=== PATIENT | female | born 1950 | race Caucasian/White ===

== ENCOUNTER 2024-08-16 17:04 | Observation (INO) | payer MEDICARE, SELFPAY ==
[2024-08-16 17:07] VITALS: BP 142/84; PULSE 80; TEMP 36.9; O2SAT 96; BMI 51.2
--- NOTE | 2024-08-16 17:12 | CT_ITS ---
The [address] [address] Patient Name: ROSARIO WEST MRN: [id number] date: 1950 Sex: F Assigned Patient Location: ER Current Patient Location: ER Accession/Order Number: [id number] Exam Date: 08/16/2024 17:30 Report Date: 08/16/2024 18:04 At the request of: TONI LOOMIS Procedure: CT head/brain wo con EXAM: CT head/brain wo con HISTORY: Weakness COMPARISON: None. TECHNIQUE: Head CT noncontrast. Axial scans with reformatted coronal and sagittal images. Individualized radiation dose reduction used for this exam. FINDINGS: No mass, edema or hemorrhage or other acute abnormality. Ventricles sulci mildly prominent consistent with mild atrophy. No extra-axial or subdural collection or hematoma. No mass effect or midline shift. No fracture or suspicious bone lesion. Visualized mastoid, middle ear cavities and sinuses clear. CT/CT head/brain wo con IMPRESSION: Negative head CT for age without hemorrhage, mass or other acute abnormality. Electronically authenticated by: KARON SHEEHAN Date: 08/16/2024 18:04
--- NOTE | 2024-08-16 17:12 | XR_ITS ---
The [address] [address] Patient Name: ROSARIO WEST MRN: [id number] date: 1950 Sex: F Assigned Patient Location: ER Current Patient Location: ED.MAIN Accession/Order Number: [id number] Exam Date: 08/16/2024 17:30 Report Date: 08/16/2024 17:59 At the request of: TONI LOOMIS Procedure: XR chest 1V EXAM: XR chest 1V HISTORY: Weakness COMPARISON: None. TECHNIQUE: AP upright chest x-ray. FINDINGS: Comparison is rotated. Heart size borderline. Prominent aortic arch. Central catheter tip projects in near the right hilum probable distal SVC. Dense nodule right lower lung field consistent with granuloma. Lungs otherwise clear without infiltrate or edema or other acute process. No pleural effusion or pneumothorax. XR/XR chest 1V IMPRESSION: Lungs without infiltrate or other acute process. Prominent aortic arch accentuated by magnification. Central catheter tip projects in the area of the distal SVC. Electronically authenticated by: KARON SHEEHAN Date: 08/16/2024 17:59
--- NOTE | 2024-08-16 17:12 | ECG_ITS ---
The [facility] Test Date: 2024-08-16 Pat Name: ROSARIO WEST Department: Room: - Gender: Female Staff Home Therapy Rn: : 1950 Requested By: Order Number: [id number] Reading MD: NADEGE GONZALEZ Measurements Intervals [place] Rate: 77 P: 65 AL: 182 QRS: 45 QRSD: 100 T: 55 QT: 394 QTc: 426 Interpretive Statements 1100 Sinus rhythm 9110 normal ECG No previous ECG available for comparison Electronically Signed On 08-17-2024 12:09:03 EST by NADEGE GONZALEZ
--- NOTE | 2024-08-16 17:13 | ED_ITS ---
HPI HPI - General Adult General Chief complaint: Altered Mental Status Stated complaint: ALTERED Time Seen by Provider: 08/16/24 17:06 Source: patient Mode of arrival: walk-in Limitations: no limitations History of Present Illness HPI narrative: Patient is a 74-year-old female with a history of hypertension, diabetes who presents to the emergency department by ambulance from her residence for evaluation of increasing weakness over the last 4 days with confusion that was apparently noted by family today. Patient states she was seen yesterday by her primary care provider who diagnosed her with a urinary tract infection. States she was started on an antibiotic but she does not know which one. History is limited, however the patient denies falls or syncope. She denies chest pain, shortness of breath, nausea, vomiting, diarrhea. She has a port to the right upper chest for history of hypomagnesemia. She denies any areas of pain at this time. Patient needs to be redirected multiple times during initial interview. Opioid HPI Opioid Management Most Recent Opioid Data: No Data to Display Review of Systems ROS Constitutional Reports: malaise; Denies: fever or chills Ears, nose, mouth, and throat Denies: throat pain or nasal discharge Cardiovascular Denies: chest pain Respiratory Denies: shortness of breath or cough Gastrointestinal Denies: abdominal pain, nausea or vomiting Musculoskeletal Denies: back pain or neck pain Integumentary/Breast Denies: rash Neurological Reports: confusion; Denies: numbness in extremities or weakness in extremities Hematologic/Lymphatic Denies: easy bruising or easy bleeding PFSH PFSH Social History Little interest or pleasure in doing things: not at all Feeling down, depressed, or hopeless: not at all Exam Narrative Exam Narrative: Gen.: Awake, alert, in no distress Head: Normocephalic, atraumatic ENT: Moist mucous membranes Respiratory: No respiratory distress, lungs clear bilaterally Cardio: Regular rate and rhythm Gastrointestinal: Abdomen is soft, nondistended and nontender to palpation Extremities: Moves extremities equally, no injuries noted Psych: Normal mood and affect Neuro: Alert and oriented to person and place, disoriented to day of the week but oriented to year Skin: Warm, dry, intact Constitutional Vital Signs, click to edit/add: Last Vital Signs Temp 98.5 F 08/16/24 17:07 Pulse 80 08/16/24 17:07 Resp 18 08/16/24 17:07 BP 142/84 H 08/16/24 17:07 Pulse Ox 96 08/16/24 17:07 O2 Del Method Room Air 08/16/24 17:07 Course Vital Signs Vital signs: Vital Signs Temperature 98.5 F 08/16/24 17:07 Pulse Rate 80 08/16/24 17:07 Respiratory Rate 18 08/16/24 17:07 Blood Pressure 142/84 H 08/16/24 17:07 Pulse Oximetry 96 08/16/24 17:07 Oxygen Delivery Method Room Air 08/16/24 17:07 Temperature 98.5 F 08/16/24 17:07 Pulse Rate 80 08/16/24 17:07 Respiratory Rate 18 08/16/24 17:07 Blood Pressure 142/84 H 08/16/24 17:07 Pulse Oximetry 96 08/16/24 17:07 Oxygen Delivery Method Room Air 08/16/24 17:07 Medical Decision Making MDM Narrative Medical decision making narrative: Straight catheter urine with no evidence of UTI. EKG, vital signs are unremarkable. Patient with no focal neurodeficits in the ER. Head CT, chest x- ray are unremarkable. Patient with no unilateral weakness. Laboratory studies show creatinine of 1.5 and BUN of 24, however we do not have any old studies to compare to. Patient is unable to ambulate or transfer due to weakness so she is admitted for observation for weakness and confusion. Family is at bedside on reevaluation by attending physician and the patient is admitted for observation with telemetry. Family requested a pure wick for the patient, this was brought down by the medical billing supervisor. She is stable at time of admission. SHARED APC VISIT, PHYSICIAN ATTESTATION: Ciqo-yp-itol I performed a substantive part of the MDM during the patient?s E/M visit. I personally evaluated and examined the patient. I personally made or approved the documented management plan and acknowledge its risk of complications. Medical Records Medical records reviewed: Yes I reviewed the patient's medical records Lab Data Lab results reviewed: Yes I reviewed the patient's lab results Labs: Lab Results 08/16/24 08/16/24 08/16/24 Range/Units 17:50 17:53 18:00 WBC 11.5 H (4.0-11.0) 10^3/uL RBC 3.96 L (4.20-5.40) 10^6/uL Hgb 11.9 L (12.0-16.0) g/dL Hct 36.7 (36.0-48.0) % MCV 92.7 (81.0-99.0) fL MCH 30.1 (26.7-34.0) pg MCHC 32.4 (29.9-35.2) g/dL RDW 15.0 (11.0-15.0) % Plt Count 248 (150-450) 10^3/uL MPV 10.2 (9.5-13.5) fL Neut % (Auto) 68.6 (43.0-75.0) % Lymph % (Auto) 22.0 (20.5-60.0) % [place] % (Auto) 6.1 (1.7-12.0) % Eos % (Auto) 1.4 (0.9-7.0) % Baso % (Auto) 0.9 (0.2-2.0) % Neut # (Auto) 7.9 H (1.4-6.5) 10^3/uL Lymph # (Auto) 2.5 (1.2-3.8) 10^3/uL [place] # (Auto) 0.7 (0.3-0.8) 10^3/uL Eos # (Auto) 0.2 (0.0-0.7) 10^3/uL Baso # (Auto) 0.1 (0.0-0.1) 10^3/uL Abs Immat Gran (auto) 0.11 H (0.00-0.03) 10^3/uL Imm/Tot Granulo (auto) 1.0 H (0.0-0.5) % PT 10.3 (9.0-11.6) sec INR 0.97 VBG pH 7.446 H (7.330-7.430) VBG pCO2 36.3 L (40.0-52.0) mmHg Sodium 135 L (136-145) mmol/L Potassium 4.0 (3.5-5.1) mmol/L Chloride 98 (98-107) mmol/L Carbon Dioxide 25.5 (21.0-32.0) mmol/L Anion Gap 15.5 BUN 24.0 H (7.0-18.0) mg/dL Creatinine 1.51 H (0.55-1.02) mg/dL Est GFR ( Amer) 41 L (>=60 mL/min/1.73m^2) Est GFR (Non-Af Amer) 34 L (>=60 mL/min/1.73m^2) BUN/Creatinine Ratio 15.9 Glucose 199 H (74-106) mg/dL Lactate 0.9 (0.4-2.0) mmol/L Calcium 8.9 (8.5-10.1) mg/dL Total Bilirubin 0.5 (0.2-1.0) mg/dL AST 20 (15-37) U/L ALT 22 (14-59) U/L Alkaline Phosphatase 88 (46-116) U/L Troponin I High Sens 5.2 (4.0-51.3) pg/mL NT-Pro-B Natriuret Pep 182.0 (<=1800.0) pg/mL Total Protein 7.1 (6.4-8.2) g/dL Albumin 2.9 L (3.4-5.0) g/dL Globulin 4.2 g/dL Albumin/Globulin Ratio 0.7 TSH 2.911 (0.358-3.740) uIU/mL Urine Color Lt. yellow (YELLOW) Urine Clarity Clear (CLEAR) Urine pH 6.5 (5.0-9.0) Ur Specific [place] <=1.005 A (1.005-1.025) Urine Protein Negative (NEG/TRACE) mg/dL Urine Glucose (UA) Negative (NEGATIVE) mg/dL Urine Ketones Negative (NEGATIVE) mg/dL Urine Occult Blood Negative (NEGATIVE) Urine Nitrite Negative (NEGATIVE) Urine Bilirubin Negative (NEGATIVE) Urine Urobilinogen 0.2 (0.2-1.0) EU/dL Ur Leukocyte Esterase Negative (NEGATIVE) Influenza Type A Ag Negative Influenza Type B Ag Negative RSV Antigen Not detected (NOT DETECTE) SARS-CoV-2 Ag (CV2AG) Negative (NEGATIVE) Imaging Data CT scan - head: Attestation: I have reviewed the pertinent imaging results. Radiologist's impression: ITS Impressions Chest X-Ray 08/16/24 17:12 IMPRESSION: Lungs without infiltrate or other acute process. Prominent aortic arch accentuated by magnification. Central catheter tip projects in the area of the distal SVC. Electronically authenticated by: KARON SHEEHAN Date: 08/16/2024 17:[address] 08/16/24 17:12 IMPRESSION: Negative head CT for age without hemorrhage, mass or other acute abnormality. Electronically authenticated by: KARON SHEEHAN Date: 08/16/2024 18:04 ECG Data Attestation: I personally reviewed and interpreted this ECG as follows: (Normal sinus rhythm at a rate of [address] elevation or ectopy. EKG reviewed by attending physician) Discharge Plan Discharge Chief Complaint: Altered Mental Status Patient Disposition: Admitted as Observation Time of Disposition Decision: 18:47 Print Language: Indonesian Referrals: KEITH GODOY [Primary Care Provider] - 1 week
[2024-08-16 18:06] LABS: Basophils Absolute Auto 0.1 10^3/uL (0.0-0.1); Basophils Percent Auto 0.9 % (0.2-2.0); Eosinophils Absolute Auto 0.2 10^3/uL (0.0-0.7); Eosinophils Percent Auto 1.4 % (0.9-7.0); Hematocrit 36.7 % (36.0-48.0); Hemoglobin 11.9 g/dL (12.0-16.0); Immature Granulocytes Abs Auto 0.11 10^3/uL (0.00-0.03); Lymphocytes Absolute Auto 2.5 10^3/uL (1.2-3.8); Mean Corpuscular HGB Conc 32.4 g/dL (29.9-35.2); Mean Corpuscular Hemoglobin 30.1 pg (26.7-34.0); Mean Corpuscular Volume 92.7 fL (81.0-99.0); Mean Platelet Volume 10.2 fL (9.5-13.5); Monocytes Absolute Auto 0.7 10^3/uL (0.3-0.8); Monocytes Percent Auto 6.1 % (1.7-12.0); Neutrophils Absolute Auto 7.9 10^3/uL (1.4-6.5); Neutrophils Percent Auto 68.6 % (43.0-75.0); Platelet Count 248 10^3/uL (150-450); Red Blood Count 3.96 10^6/uL (4.20-5.40); White Blood Count 11.5 10^3/uL (4.0-11.0)
[2024-08-16 18:12] LABS: PCO2 VBG 36.3 mmHg (40.0-52.0); pH VBG 7.446 (7.330-7.430)
[2024-08-16 18:24] LABS: INR 0.97; Prothrombin Time 10.3 sec (9.0-11.6)
[2024-08-16 18:26] LABS: Lactate/Lactic Acid 0.9 mmol/L (0.4-2.0)
[2024-08-16 18:29] LABS: Bilirubin Urine NEGATIVE (NEGATIVE); Blood Urine NEGATIVE (NEGATIVE); Clarity Urine CLEAR (CLEAR); Color Urine LT. YELLOW (YELLOW); Glucose Urine UA NEGATIVE (NEGATIVE); Ketones Urine NEGATIVE (NEGATIVE); Leukocyte Esterase Urine NEGATIVE (NEGATIVE); Nitrite Urine NEGATIVE (NEGATIVE); Protein Urine NEGATIVE (NEG/TRACE); Specific Gravity Urine <=1.005 (1.005-1.025); Urobilinogen Urine 0.2 EU/dL (0.2-1.0); pH Urine 6.5 (5.0-9.0)
[2024-08-16 18:30] LABS: Urine Microscopic Indicated NO
[2024-08-16 18:32] LABS: Internal Control Within Normal Limits; SARS-CoV-2 Ag NEGATIVE (NEGATIVE)
[2024-08-16 18:33] LABS: Alanine Aminotransferase 22 U/L (14-59); Albumin Globulin Ratio 0.7; Albumin Level 2.9 g/dL (3.4-5.0); Alkaline Phosphatase 88 U/L (46-116); Anion Gap 15.5; Aspartate Amino Transferase 20 U/L (15-37); BUN Creatinine Ratio 15.9; Bilirubin Total 0.5 mg/dL (0.2-1.0); Calcium 8.9 mg/dL (8.5-10.1); Carbon Dioxide 25.5 mmol/L (21.0-32.0); Chloride 98 mmol/L (98-107); Estimated GFR (African America 41 (>=60 mL/min/1.73m^2); Estimated GFR (Non-African Ame 34 (>=60 mL/min/1.73m^2); Globulin 4.2 g/dL; Glucose 199 mg/dL (74-106); Sodium 135 mmol/L (136-145); Thyroid Stimulating Hormone 2.911 uIU/mL (0.358-3.740); Total Protein 7.1 g/dL (6.4-8.2); Troponin I High Sensitivity 5.2 pg/mL (4.0-51.3)
[2024-08-16 18:33] LABS: Influenza Virus A Antigen Negative; Influenza Virus B Antigen Negative
[2024-08-16 18:34] LABS: Internal Control Within Normal Limits; Respiratory Syncytial Virus Not Detected (NOT DETECTE)
[2024-08-16 19:09] VITALS: BP 189/87; PULSE 70; TEMP 36.4; O2SAT 97
[2024-08-16 19:58] VITALS: BMI 51.4
[2024-08-16 20:00] VITALS: BP 155/66; PULSE 66; PULSE 71; TEMP 36.7; O2SAT 93
--- NOTE | 2024-08-16 20:05 | PC.NURSE ---
this patient is awake and alert lying supine on the bed during transfer upstairs, this patient voices no concerns and shows no signs of distress
[2024-08-16] MEDS: ENOXAPARIN SODIUM 40 MG/0.4 ML SYRINGE SUBQ (20:57)
[2024-08-16 21:35] VITALS: PULSE 67
[2024-08-16 23:55] VITALS: PULSE 77
[2024-08-17] VITALS (14 sets, daily range): BP systolic 144–155; BP diastolic 72–93; PULSE 68–79; TEMP 36.4–36.7; O2SAT 91–95
[2024-08-17 05:54] LABS: Basophils Absolute Auto 0.1 10^3/uL (0.0-0.1); Basophils Percent Auto 0.9 % (0.2-2.0); Eosinophils Absolute Auto 0.2 10^3/uL (0.0-0.7); Hematocrit 35.6 % (36.0-48.0); Hemoglobin 11.6 g/dL (12.0-16.0); Immature Granulocytes Pct Auto 0.9 % (0.0-0.5); Lymphocytes Absolute Auto 3.2 10^3/uL (1.2-3.8); Mean Corpuscular HGB Conc 32.6 g/dL (29.9-35.2); Mean Corpuscular Hemoglobin 30.4 pg (26.7-34.0); Mean Corpuscular Volume 93.2 fL (81.0-99.0); Mean Platelet Volume 10.1 fL (9.5-13.5); Monocytes Absolute Auto 0.8 10^3/uL (0.3-0.8); Monocytes Percent Auto 7.8 % (1.7-12.0); Neutrophils Absolute Auto 6.2 10^3/uL (1.4-6.5); Neutrophils Percent Auto 58.4 % (43.0-75.0); Platelet Count 217 10^3/uL (150-450); Red Blood Count 3.82 10^6/uL (4.20-5.40); White Blood Count 10.6 10^3/uL (4.0-11.0)
[2024-08-17 06:10] LABS: Alanine Aminotransferase 19 U/L (14-59); Albumin Globulin Ratio 0.7; Albumin Level 2.7 g/dL (3.4-5.0); Alkaline Phosphatase 77 U/L (46-116); Anion Gap 13.1; Aspartate Amino Transferase 17 U/L (15-37); BUN Creatinine Ratio 15.6; Bilirubin Total 0.4 mg/dL (0.2-1.0); Calcium 9.3 mg/dL (8.5-10.1); Carbon Dioxide 25.7 mmol/L (21.0-32.0); Chloride 101 mmol/L (98-107); Estimated GFR (African America 44 (>=60 mL/min/1.73m^2); Estimated GFR (Non-African Ame 36 (>=60 mL/min/1.73m^2); Globulin 3.9 g/dL; Glucose 171 mg/dL (74-106); Magnesium 2.4 mg/dL (1.8-2.4); Potassium 3.8 mmol/L (3.5-5.1); Sodium 136 mmol/L (136-145); Total Protein 6.6 g/dL (6.4-8.2)
[2024-08-17] MEDS: 0.9 % SODIUM CHLORIDE 1,000 ML 100 ML IV ×2 (10:08→21:25)
[2024-08-17] MEDS: NYSTATIN 15 GM POWDER 1 APPLIC TOPICAL ×2 (10:08→21:25)
[2024-08-17] MEDS: CEFTRIAXONE 1,000 MG in 0.9 % SODIUM CHLORIDE 50 ML 100 MG IV (10:08)
[2024-08-17] MEDS: OXYBUTYNIN CHLORIDE 5 MG TAB XL 10 MG PO (10:09)
[2024-08-17] MEDS: ALLOPURINOL 300 MG TABLET PO (10:09)
[2024-08-17] MEDS: LISINOPRIL 10 MG TABLET PO (10:09)
[2024-08-17] MEDS: MAGNESIUM OXIDE 400 MG TABLET 800 MG PO ×2 (10:09→21:20)
[2024-08-17] MEDS: FAMOTIDINE 20 MG TABLET 40 MG PO (10:10)
[2024-08-17] MEDS: CARVEDILOL 25 MG TABLET PO ×2 (10:10→21:20)
[2024-08-17] MEDS: FLUTICASONE PROPIONATE 50 MCG NASAL SPRAY 1 SPRAY NS (10:13)
[2024-08-17 11:14] LABS: Glucometer 340 mg/dL (74-106)
[2024-08-17] MEDS: INSULIN ASPART 300 UNIT/3 ML PEN SUBQ ×3 (11:18→21:22)
--- NOTE | 2024-08-17 12:09 | P.HP_ITS ---
HPI H&P: HPI History of Present Illness Chief complaint: ALTERED, WEAKNESS, CONFUSION Narrative: 74 y o female presented to ED from home for one week hx of generalized weakness and intermittent confusion with hallucinations. Patient lives at home, by herself and had a fall on Sunday for which she was evaluated at [facility]. She was discharged from ED. On Sunday, her PCP started her on Ciprofloxacin for UTI. Patient was alert and oriented but struggled to remember all the details and needed constant redirection during our conversation. Most of the information was obtained from patient's daughter - Maria T over phone. Patient denies nausea, vomiting, chest pain, SOB, abdominal pain, constipation, diarrhea. She reports that she previously had urinary frequency and dysuria but not anymore. According to the patient and her daughter, since her ED visit, patient has been felt increasingly weak and that she realizes that she can't stay home anymore and will need to be in a jail and assisted living facility. Her confusion is relatively new and she noticed visual hallucinations x 1-2 days. Work up in ED was unremarkable with no sig infectious, metabolic or hematological abnormality noted. She was empirically treated with IV rocephin for presumed UTI and gentle IV hydration overnight. She feels a little better overall but still feeling weak/tired and has little to no energy. Opioid HPI Opioid Management Most Recent Pain and Opioid Data: Last Pain Assessment 08/17/24 11:43 Last ORT Total Score 0 08/16/24 19:58 08/16/24 Last ORT Risk Category Low Risk 08/16/24 19:58 08/16/24 Review of Systems ROS Status of ROS 10 or more systems reviewed and unremark able except as noted in history and below [facility] Medical History (Updated 08/17/24 @ 12:19 by Shaikh Alvin MD) Obesity ?E66.9 - Obesity, unspecified (ICD-10) Irritable bowel syndrome ?K58.9 - Irritable bowel syndrome, unspecified (ICD-10) Hypertension ?I10 - Essential (primary) hypertension (ICD-10) Hyperlipidemia ?E78.5 - Hyperlipidemia, unspecified (ICD-10) Diabetes ?E11.9 - Type 2 diabetes mellitus without complications (ICD-10) Chronic kidney disease ?N18.9 - Chronic kidney disease, unspecified (ICD-10) Family History (Updated 08/16/24 @ 20:20 by Jasmin Mcmanus) Other Family history of hypertension Social History (Updated 08/16/24 @ 20:21 by Jasmin Mcmanus) Within the past year, how often did you have a drink containing alcohol: never Score interpretation: A score less than 3 is consistent with normal alcohol consumption. Smoking status: Former smoker Non-prescribed substance use: denies use Previous occupational history: retired Are you now , , , , never or living with a partner: In a typical week, how many times do you talk on the telephone with family, friends, or neighbors: 3 or more times per week How often do you get together with friends or relatives: 3 or more times per week How often do you attend jewish or lutheran services: never Little interest or pleasure in doing things: not at all Feeling down, depressed, or hopeless: not at all Feel stressed/tense/nervous/anxious/difficulty sleeping: not at all Do you think of yourself as: straight/heterosexual Gender Identity: female Meds Home Medications and Allergies Home Medications ?Medication ?Instructions ?Recorded ?Confirmed ?Type allopurinol 300 mg tablet 300 mg PO DAILY 08/16/24 08/17/24 History bupropion HCl 300 mg 24 hr tablet, 300 mg PO DAILY 08/16/24 08/17/24 History extended release carvedilol 25 mg tablet 25 mg PO BID 08/16/24 08/17/24 History ciprofloxacin HCl 500 mg tablet 500 mg PO BID 08/16/24 08/17/24 History clotrimazole 1 % topical cream 1 applic topical BID 08/16/24 08/17/24 History famotidine 40 mg tablet 40 mg PO DAILY 08/16/24 08/17/24 History ferrous sulfate 325 mg (65 mg 325 mg PO MOWEFR 08/16/24 08/17/24 History iron) tablet glipizide 10 mg tablet, extended 10 mg PO DAILY 08/16/24 08/17/24 History release 24 hr lisinopril 10 mg tablet 10 mg PO DAILY 08/16/24 08/17/24 History magnesium oxide 400 mg (241.3 mg 800 mg PO BID 08/16/24 08/17/24 History magnesium) tablet oxybutynin chloride 10 mg 10 mg PO DAILY 08/16/24 08/17/24 History tablet,extended release 24 hr ascorbic acid (vitamin C) 250 mg 250 mg PO MOWEFR 08/17/24 08/17/24 History chewable tablet colchicine 0.6 mg tablet mg 08/17/24 History fluticasone propionate 50 1 spray intranasal DAILY 08/17/24 08/17/24 History mcg/actuation nasal spray,suspension nystatin 100,000 unit/gram topical 1 applic topical BID 08/17/24 08/17/24 History powder (Klayesta) tirzepatide 12.5 mg/0.5 mL 12.5 mg subcut QWEEK 08/17/24 08/17/24 History subcutaneous pen injector (Deyaro) triamcinolone acetonide 0.1 % 1 applic topical .SUN-Sun08/17/24 08/17/24 History lotion Allergies Allergy/AdvReac Type Severity Reaction Status Date / Time No Known Drug Allergies Allergy Verified 08/16/24 19:52 Exam Constitutional Vital Signs, click to edit/add: Last Vital Signs Temp 97.5 F L 08/17/24 04:00 Pulse 70 08/17/24 12:00 Resp 18 08/17/24 04:00 BP 145/76 H 08/17/24 04:00 Pulse Ox 92 L 08/17/24 11:00 O2 Del Method Room Air 08/17/24 11:00 Documenting provider has reviewed patient's vital signs: yes Common normals: no apparent distress and oriented x3 General appearance: cooperative Nutritional appearance: obese [facility] Common normals: normocephalic and head/scalp atraumatic Head and scalp: normocephalic and atraumatic Eye Common normals: conjunctivae normal and no scleral icterus Conjunctiva: conjunctiva(e) normal Respiratory Common normals: normal respiratory effort and clear to auscultation bilaterally Effort & inspection: able to speak in complete sentences Auscultation: clear to auscultation bilaterally Cardio Common normals: regular rate, S1 normal heart sound and S2 normal heart sound Rate: regular rate Heart sounds: S1 normal and S2 normal GI Common normals: Normal to inspection, nondistended, normoactive bowel sounds present, soft to palpation, non-tender and no hepatosplenomegaly Palpation: soft and no hepatosplenomegaly Extremity Common normals: no clubbing, cyanosis or edema Neuro Common normals: oriented x3, moves all extremities and no focal motor deficits Psych Common normals: denies homicidal ideation and denies suicidal ideation Attitude: calm Speech: normal speech Thought content: hallucination(s) visual Insight: fair Judgement: fair Results Labs Labs: Short CBC 08/16/24 08/17/24 Range/Units 17:50 05:46 WBC 11.5 H 10.6 (4.0-11.0) 10^3/uL Hgb 11.9 L 11.6 L (12.0-16.0) g/dL Hct 36.7 35.6 L (36.0-48.0) % Plt Count 248 217 (150-450) 10^3/uL BMP 08/16/24 08/17/24 17:50 05:46 Sodium 135 L 136 Potassium 4.0 3.8 Chloride 98 101 Carbon Dioxide 25.5 25.7 BUN 24.0 H 22.0 H Creatinine 1.51 H 1.41 H Glucose 199 H 171 H Calcium 8.9 9.3 Liver Function 08/16/24 08/17/24 Range/Units 17:50 05:46 Total Bilirubin 0.5 0.4 (0.2-1.0) mg/dL AST 20 17 (15-37) U/L ALT 22 19 (14-59) U/L Alkaline Phosphatase 88 77 (46-116) U/L Albumin 2.9 L 2.7 L (3.4-5.0) g/dL Urine 08/16/24 Range/Units 18:00 Urine Color Lt. yellow (YELLOW) Urine Clarity Clear (CLEAR) Urine pH 6.5 (5.0-9.0) Ur Specific [place] <=1.005 A (1.005-1.025) Urine Protein Negative (NEG/TRACE) mg/dL Urine Glucose (UA) Negative (NEGATIVE) mg/dL ABG ABG results: 08/16/24 17:50 VBG pH 7.446 H VBG pCO2 36.3 L Assessment and Plan Assessment and Plan (1) Altered mental status: Qualifiers: Altered mental status type: delirium Qualified Code(s): R41.0 - Disorientation, unspecified (2) Weakness: (3) Hypertension: Qualifiers: Hypertension type: primary hypertension Qualified Code(s): I10 - Essential (primary) hypertension (4) Diabetes: Qualifiers: Diabetes mellitus type: type 2 Diabetes mellitus group home insulin use: without buttermaker continuous churn use Diabetes mellitus complication status: with kidney complications Diabetes mellitus complication detail: with chronic kidney disease Chronic kidney disease stage: stage 3 (moderate) Chronic kidney disease stage 3 subtype: stage 3a (GFR 45-59) Qualified Code(s): E11.22 - Type 2 diabetes mellitus with diabetic chronic kidney disease; N18.31 - Chronic kidney disease, stage 3a (5) Chronic kidney disease: Qualifiers: Chronic kidney disease stage: stage 3 (moderate) Chronic kidney disease stage 3 subtype: stage 3a (GFR 45-59) Qualified Code(s): N18.31 - Chronic kidney disease, stage 3a (6) Hyperlipidemia: Qualifiers: Hyperlipidemia type: unspecified Qualified Code(s): E78.5 - Hyperlipidemia, unspecified Plan Change in mental status could be due to Quinolone use - she was prescribed Ciprofloxacin for UTI by PCP. CTH - no acute finding. UA in the hospital is not indicative of UTI. Will treat empirically for now with IV rocephin and can switch to PO Abx once stable for discharge. PT/OT eval ordered for generalized weakness. She was in acute rehab in April earlier this year and has been participating in outpatient PT/OT. However, ever since her recent fall and UTI, she has had gradual decline in her functional status and she feels overall weak. She might benefit from acute rehab. Awaiting PT/OT eval. Resume home medications for HTN. Hold oral hypoglycemics and cover hyperglycemia with sliding scale insulin while she is in the hospital. Patient reported hallucinations early in the morning. She was doing well at the time of evaluation. She will need continued monitoring to ensure she is safe for discharge and her mental status is back to its baseline and her hallucinations/confusion resolve. Discussed care plan with daughter, patient and RN. Will need social services analyst consult for disposition planning. Urinary Catheter Management Urinary Catheter Management Pure Wick: Cath placed during this visit: yes Urethral indwelling: No Insertion date: 08/17/24 Insertion time: 06:38
[2024-08-17 16:07] LABS: Glucometer 153 mg/dL (74-106)
[2024-08-17 20:37] LABS: Glucometer 225 mg/dL (74-106)
[2024-08-17] MEDS: HEPARIN SODIUM (PORCINE) 5,000 UNIT/ML VIAL 7500 UNIT SUBQ (21:21)
[2024-08-18] VITALS (18 sets, daily range): BP systolic 127–152; BP diastolic 77–84; PULSE 65–77; TEMP 36.3–36.8; O2SAT 92–97
[2024-08-18] MEDS: HEPARIN SODIUM (PORCINE) 5,000 UNIT/ML VIAL 7500 UNIT SUBQ ×3 (05:30→22:06)
[2024-08-18] MEDS: 0.9 % SODIUM CHLORIDE 1,000 ML 100 ML IV ×2 (05:48→16:24)
[2024-08-18 06:06] LABS: Basophils Absolute Auto 0.1 10^3/uL (0.0-0.1); Basophils Percent Auto 0.8 % (0.2-2.0); Eosinophils Absolute Auto 0.2 10^3/uL (0.0-0.7); Eosinophils Percent Auto 2.4 % (0.9-7.0); Hematocrit 36.8 % (36.0-48.0); Hemoglobin 11.7 g/dL (12.0-16.0); Immature Granulocytes Abs Auto 0.09 10^3/uL (0.00-0.03); Immature Granulocytes Pct Auto 0.9 % (0.0-0.5); Lymphocytes Absolute Auto 2.8 10^3/uL (1.2-3.8); Mean Corpuscular HGB Conc 31.8 g/dL (29.9-35.2); Mean Corpuscular Hemoglobin 29.8 pg (26.7-34.0); Mean Corpuscular Volume 93.6 fL (81.0-99.0); Mean Platelet Volume 9.8 fL (9.5-13.5); Monocytes Absolute Auto 0.7 10^3/uL (0.3-0.8); Monocytes Percent Auto 6.8 % (1.7-12.0); Neutrophils Absolute Auto 5.8 10^3/uL (1.4-6.5); Neutrophils Percent Auto 60.1 % (43.0-75.0); Platelet Count 221 10^3/uL (150-450); Red Blood Count 3.93 10^6/uL (4.20-5.40); Red Cell Distribution Width 14.8 % (11.0-15.0); White Blood Count 9.6 10^3/uL (4.0-11.0)
[2024-08-18 06:31] LABS: Alanine Aminotransferase 21 U/L (14-59); Albumin Globulin Ratio 0.6; Albumin Level 2.5 g/dL (3.4-5.0); Alkaline Phosphatase 76 U/L (46-116); Anion Gap 14.3; Aspartate Amino Transferase 21 U/L (15-37); BUN Creatinine Ratio 13.1; Bilirubin Total 0.3 mg/dL (0.2-1.0); Calcium 8.2 mg/dL (8.5-10.1); Carbon Dioxide 23.7 mmol/L (21.0-32.0); Chloride 102 mmol/L (98-107); Estimated GFR (African America 48 (>=60 mL/min/1.73m^2); Estimated GFR (Non-African Ame 40 (>=60 mL/min/1.73m^2); Globulin 3.9 g/dL; Glucose 200 mg/dL (74-106); Sodium 136 mmol/L (136-145); Total Protein 6.4 g/dL (6.4-8.2)
[2024-08-18] MEDS: OXYBUTYNIN CHLORIDE 5 MG TAB XL 10 MG PO (08:21)
[2024-08-18] MEDS: FLUTICASONE PROPIONATE 50 MCG NASAL SPRAY 1 SPRAY NS (08:21)
[2024-08-18] MEDS: BUPROPION HCL 150 MG XL TABLET 24H 300 MG PO (08:21)
[2024-08-18] MEDS: FAMOTIDINE 20 MG TABLET 40 MG PO (08:21)
[2024-08-18] MEDS: INSULIN ASPART 300 UNIT/3 ML PEN SUBQ ×4 (08:21→22:04)
[2024-08-18] MEDS: MAGNESIUM OXIDE 400 MG TABLET 800 MG PO ×2 (08:21→22:06)
[2024-08-18] MEDS: ALLOPURINOL 300 MG TABLET PO (08:21)
[2024-08-18] MEDS: ASCORBIC ACID 500 MG TABLET 250 MG PO (08:21)
[2024-08-18] MEDS: FERROUS SULFATE 325 MG TABLET PO ×2 (08:21→22:07)
[2024-08-18] MEDS: LISINOPRIL 10 MG TABLET PO (08:22)
[2024-08-18] MEDS: NYSTATIN 15 GM POWDER 1 APPLIC TOPICAL ×2 (08:22→22:05)
[2024-08-18] MEDS: CARVEDILOL 25 MG TABLET PO ×2 (08:22→22:07)
--- NOTE | 2024-08-18 10:33 | SWNOTE1 ---
DENILSON met with pt to discuss dc needs. Pt lives at home alone. She voiced her daughter calls her like 10x a day to check on her and usually visits at least 1x daily. Pt does have and uses a rollator at home. Pt has not steps in the home. Pt voiced it felt better to get up and move with therapy today. SW advised pt that therapy did recommend a short term rehab stay. Pt stated she does not want to go to rehab facility at this time. Pt is agreeable to Home Health. Pt has had HH in the past, but can't remember the name of the company. Pt is alright with any [employer] company. Pt is aware she is being discharged today and her daughter will be picking her up after work, 6:00 or later. DENILSON called [facility] and they do take [facility], as long as it is not a dual plan. Referral sent to [facility]. Referral included face sheet, ED note, H&P, provider notes, case management report, and PT/OT notes.
--- NOTE | 2024-08-18 10:44 | CM.NOTE ---
Rounds made with Dr. Esquivel. Dr. Esquivel reviews plan of care. Potential Home Health at discharge.
--- NOTE | 2024-08-18 10:46 | SWNOTE1 ---
Medicare Outpatient Observation Notice reviewed and discussed with patient. Pt. verbalized understanding and signed the form. Original given to patient and copy placed in patient?s chart.
[2024-08-18] MEDS: CEFTRIAXONE 1,000 MG in 0.9 % SODIUM CHLORIDE 50 ML 100 MG IV (10:53)
--- NOTE | 2024-08-18 11:08 | PM.DS1 ---
DS: Providers Provider Date of admission: 08/16/24 19:41 Primary care physician: VICKIE DOYLE Admitting clinician: Shaikh Alvin Attending physician on admission: Shaikh Alvin Consults: 08/17/24 08:43 Physical Therapy Eval and Treat Routine Reason for consultation: Generalized weakness 08/18/24 Occupational Therapy Eval and Treat Routine Reason for consultation: therapy Attending physician on discharge: Shaikh Alvin Discharging clinician: Shaikh Alvin Anticipated date of discharge: 08/18/24 DS: Diagnosis Discharge Diagnosis (1) Altered mental status: Qualifiers: Altered mental status type: delirium Qualified Code(s): R41.0 - Disorientation, unspecified (2) Weakness: (3) Hypertension: Qualifiers: Hypertension type: primary hypertension Qualified Code(s): I10 - Essential (primary) hypertension (4) Diabetes: Qualifiers: Diabetes mellitus type: type 2 Diabetes mellitus senior living insulin use: without ad terminal makeup operator use Diabetes mellitus complication status: with kidney complications Diabetes mellitus complication detail: with chronic kidney disease Chronic kidney disease stage: stage 3 (moderate) Chronic kidney disease stage 3 subtype: stage 3a (GFR 45-59) Qualified Code(s): E11.22 - Type 2 diabetes mellitus with diabetic chronic kidney disease; N18.31 - Chronic kidney disease, stage 3a (5) Chronic kidney disease: Qualifiers: Chronic kidney disease stage: stage 3 (moderate) Chronic kidney disease stage 3 subtype: stage 3a (GFR 45-59) Qualified Code(s): N18.31 - Chronic kidney disease, stage 3a (6) Hyperlipidemia: Qualifiers: Hyperlipidemia type: unspecified Qualified Code(s): E78.5 - Hyperlipidemia, unspecified DS: Summary Hospital Course Hospital Course: 74 y o female presented to ED from home for one week hx of generalized weakness and intermittent confusion with hallucinations. Patient lives at home, by herself and had a fall on Sunday for which she was evaluated at [facility]. She was discharged from ED. On Sunday, her PCP started her on Ciprofloxacin for UTI. Patient denied nausea, vomiting, chest pain, SOB, abdominal pain, constipation, diarrhea. According to the patient and her daughter, since her ED visit, patient had felt increasingly weak. Her confusion was relatively new and she noticed visual hallucinations x 1-2 days. Work up in ED was unremarkable with no sig infectious, metabolic or hematological abnormality noted. She was empirically treated with IV rocephin for presumed UTI and gentle IV hydration overnight. She is at her baseline mental status and does not have any hallucinations or confusion anymore. 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 Patient was evaluated by PT/OT. She did well on her own, and walked 10 feet w/o any help/support. We discussed different options with the patient and if she could consider acute rehab briefly but she prefers to go home with home health. She is medically stable for discharge. She will need f/u with PCP in one week. Status at Discharge Functional status at discharge: uses cane/walker Overall status at discharge: patient is back to baseline Time Spent with Patient Time attestation: Total time spent providing and/or coordinating discharge services: Time spent: greater than 30 minutes Exam Constitutional Vital Signs, click to edit/add: Last Vital Signs Temp 97.3 F L 08/18/24 08:15 Pulse 72 08/18/24 09:52 Resp 18 08/18/24 08:15 BP 152/84 H 08/18/24 08:15 Pulse Ox 93 L 08/18/24 08:15 O2 Del Method Room Air 08/18/24 08:15 Documenting provider has reviewed patient's vital signs: yes Common normals: no apparent distress and oriented x3 General appearance: cooperative Nutritional appearance: obese Respiratory Common normals: normal respiratory effort and clear to auscultation bilaterally Effort & inspection: able to speak in complete sentences Auscultation: clear to auscultation bilaterally Cardio Common normals: regular rate, S1 normal heart sound and S2 normal heart sound Rate: regular rate Heart sounds: S1 normal and S2 normal GI Common normals: Normal to inspection, nondistended, normoactive bowel sounds present, soft to palpation, non-tender and no hepatosplenomegaly Palpation: soft and no hepatosplenomegaly Extremity Common normals: no clubbing, cyanosis or edema Neuro Common normals: oriented x3, moves all extremities and no focal motor deficits Psych Common normals: denies homicidal ideation and denies suicidal ideation Attitude: calm Speech: normal speech Insight: fair Judgement: fair DS: Data Data Completed and Pending Labs on day of discharge: Labs from last 24 hours 08/18/24 08/17/24 08/17/24 05:56 20:35 16:06 WBC 9.6 RBC 3.93 L Hgb 11.7 L Hct 36.8 MCV 93.6 MCH 29.8 MCHC 31.8 RDW 14.8 Plt Count 221 MPV 9.8 Neut % (Auto) 60.1 Lymph % (Auto) 29.0 [place] % (Auto) 6.8 Eos % (Auto) 2.4 Baso % (Auto) 0.8 Neut # (Auto) 5.8 Lymph # (Auto) 2.8 [place] # (Auto) 0.7 Eos # (Auto) 0.2 Baso # (Auto) 0.1 Abs Immat Gran (auto) 0.09 H Imm/Tot Granulo (auto) 0.9 H Sodium 136 Potassium 4.0 Chloride 102 Carbon Dioxide 23.7 Anion Gap 14.3 BUN 17.0 Creatinine 1.30 H Est GFR ( Amer) 48 L Est GFR (Non-Af Amer) 40 L BUN/Creatinine Ratio 13.1 Glucose 200 H Calcium 8.2 L Total Bilirubin 0.3 AST 21 ALT 21 Alkaline Phosphatase 76 Total Protein 6.4 Albumin 2.5 L Globulin 3.9 Albumin/Globulin Ratio 0.6 POC Glucose 225 H 153 H 08/17/24 11:13 WBC RBC Hgb Hct MCV MCH MCHC RDW Plt Count MPV Neut % (Auto) Lymph % (Auto) [place] % (Auto) Eos % (Auto) Baso % (Auto) Neut # (Auto) Lymph # (Auto) [place] # (Auto) Eos # (Auto) Baso # (Auto) Abs Immat Gran (auto) Imm/Tot Granulo (auto) Sodium Potassium Chloride Carbon Dioxide Anion Gap BUN Creatinine Est GFR ( Amer) Est GFR (Non-Af Amer) BUN/Creatinine Ratio Glucose Calcium Total Bilirubin AST ALT Alkaline Phosphatase Total Protein Albumin Globulin Albumin/Globulin Ratio POC Glucose 340 H Discharge Plan Discharge Disposition: Home Health Service Condition: Good Discharge Medications: Continued carvedilol 25 mg tablet 25 mg PO BID oxybutynin chloride 10 mg tablet extended release 24hr 10 mg PO DAILY glipizide 10 mg tablet extended release 24hr 10 mg PO DAILY famotidine 40 mg tablet 40 mg PO DAILY magnesium oxide 400 mg (241.3 mg magnesium) tablet 800 mg PO BID ferrous sulfate 325 mg (65 mg iron) tablet 325 mg PO MOWEFR Rx Instructions: TWICE A DAY ON SUNDAY, SUN AND SUNDAY lisinopril 10 mg tablet 10 mg PO DAILY allopurinol 300 mg tablet 300 mg PO DAILY clotrimazole 1 % cream 1 applic TOPICAL BID bupropion HCl 300 mg tablet extended release 24 hr 300 mg PO DAILY ascorbic acid (vitamin C) 250 mg tablet,chewable 250 mg PO MOWE Rx Instructions: TWICE A DAY ON SUN, SUN, SUN nystatin [Klayesta] 100,000 unit/gram powder 1 applic TOPICAL BID triamcinolone acetonide 0.1 % lotion 1 applic TOPICAL .SUN-SUN Rx Instructions: APPLY TO [facility] SUNDAY-SUNDAY FOR 2 WEEKS THEN NEEDED FOR FLARES colchicine 0.6 mg tablet 0.6 mg PO BID fluticasone propionate 50 mcg/actuation spray,suspension 1 spray INTRANASAL DAILY Mounjaro 12.5 mg/0.5 mL pen injector 12.5 mg SUBCUT QWEEK Discontinued ciprofloxacin HCl 500 mg tablet 500 mg PO BID Rx Instructions: 08/15/24-08/21/24 Activity: increase activity as tolerated Diet: advance to your usual diet Print Language: Urdu Forms: Portal Instructions Follow Up Appointments: Aug.25 @ 1:20pm with Dr. Milian (Vickie Dolye, [employer] - retired) [phone]
[2024-08-18 11:12] LABS: Glucometer 329 mg/dL (74-106)
--- NOTE | 2024-08-18 12:03 | SWNOTE1 ---
SW had message from nurse that pt's daughter called and she does not feel pt is strong enough to return home. SW stopped in to speak with pt. She voiced that her daughter is concerned about her returning home alone. She is now in agreement with her daughter and does see that she needs strengthening. SW advised that SW has to speak with doctor. While SW speaks with doctor, SW encouraged pt to call her daughter to see where she would like her to go. SW spoke with doctor and pt will be staying. Pt is a precert. SW went back in and spoke with pt. She stated that her PCP had told her that [facility] takes her insurance. SW advised that there are several others, [facility], [facility], and some others in [place]. Pt voiced her daughter works at [employer] and she can't answer, she has been texting her. SW asked if SW could call her. Pt then stated she is her own person and that she wants to go to [facility]. She stated her daughter already advised her to go to rehab and that she can decide for herself where. DENILSON let pt know that pt is a precert and we have to wait for her insurance to approve her and SW will call [facility] to make sure they have openings. DENILSON called Colette at [facility] and they have openings. Referral sent to [facility]. Referral included face sheet, ED note, H&P, provider notes, case management report, nursing notes, diagnostic imaging, med list, and PT/OT notes.
--- NOTE | 2024-08-18 12:22 | SWNOTE1 ---
SW called [facility] and let them know pt is now wanting to go to SNF.
--- NOTE | 2024-08-18 13:14 | SWNOTE1 ---
Pt's daughter called up to the office secretary requesting to speak to SW. SW went in to pt's room and pt gave permission for SW to call. SW called 2x, no answer. SW left a detailed voicemail with the discharge plan.
--- NOTE | 2024-08-18 14:14 | SWNOTE1 ---
SW did receive a call from pt's daughter, Maria T. She did ask SW about HH services and how often they come in. SW explained a few times of the week for 30-45 minutes. She voiced understanding and feels pt does need SNF. She is alright with [facility]. SW let her know that [facility] has accepted and started precert and we have to wait for insurance to approve. SW to update pt. SW let nurse know as well.
[2024-08-18 16:31] LABS: Glucometer 171 mg/dL (74-106)
[2024-08-18] MEDS: CLOTRIMAZOLE 1% 1 APPLIC TOPICAL (22:05)
[2024-08-18 22:09] LABS: Glucometer 218 mg/dL (74-106)
[2024-08-19] VITALS (17 sets, daily range): BP systolic 142–174; BP diastolic 78–89; PULSE 62–89; TEMP 36.4–36.6; O2SAT 94–96
[2024-08-19] MEDS: 0.9 % SODIUM CHLORIDE 1,000 ML 100 ML IV ×3 (02:26→23:05)
[2024-08-19] MEDS: HEPARIN SODIUM (PORCINE) 5,000 UNIT/ML VIAL 7500 UNIT SUBQ ×3 (05:56→21:31)
[2024-08-19 06:29] LABS: Basophils Absolute Auto 0.1 10^3/uL (0.0-0.1); Basophils Percent Auto 0.7 % (0.2-2.0); Eosinophils Absolute Auto 0.3 10^3/uL (0.0-0.7); Eosinophils Percent Auto 3.2 % (0.9-7.0); Hematocrit 38.9 % (36.0-48.0); Hemoglobin 12.4 g/dL (12.0-16.0); Immature Granulocytes Abs Auto 0.12 10^3/uL (0.00-0.03); Immature Granulocytes Pct Auto 1.1 % (0.0-0.5); Lymphocytes Absolute Auto 3.3 10^3/uL (1.2-3.8); Mean Corpuscular HGB Conc 31.9 g/dL (29.9-35.2); Mean Corpuscular Volume 94.2 fL (81.0-99.0); Mean Platelet Volume 9.8 fL (9.5-13.5); Monocytes Absolute Auto 0.6 10^3/uL (0.3-0.8); Monocytes Percent Auto 5.9 % (1.7-12.0); Neutrophils Absolute Auto 6.2 10^3/uL (1.4-6.5); Neutrophils Percent Auto 58.1 % (43.0-75.0); Platelet Count 221 10^3/uL (150-450); Red Blood Count 4.13 10^6/uL (4.20-5.40); Red Cell Distribution Width 14.9 % (11.0-15.0); White Blood Count 10.6 10^3/uL (4.0-11.0)
[2024-08-19 06:46] LABS: Alanine Aminotransferase 25 U/L (14-59); Albumin Globulin Ratio 0.7; Albumin Level 2.7 g/dL (3.4-5.0); Alkaline Phosphatase 84 U/L (46-116); Anion Gap 12.4; Aspartate Amino Transferase 19 U/L (15-37); BUN Creatinine Ratio 11.6; Bilirubin Total 0.4 mg/dL (0.2-1.0); Calcium 8.6 mg/dL (8.5-10.1); Carbon Dioxide 23.4 mmol/L (21.0-32.0); Chloride 101 mmol/L (98-107); Estimated GFR (African America 52 (>=60 mL/min/1.73m^2); Estimated GFR (Non-African Ame 43 (>=60 mL/min/1.73m^2); Globulin 4.1 g/dL; Glucose 176 mg/dL (74-106); Potassium 3.8 mmol/L (3.5-5.1); Sodium 133 mmol/L (136-145); Total Protein 6.8 g/dL (6.4-8.2)
[2024-08-19 08:20] LABS: Glucometer 186 mg/dL (74-106)
[2024-08-19] MEDS: INSULIN ASPART 300 UNIT/3 ML PEN SUBQ ×4 (08:42→21:22)
[2024-08-19] MEDS: ALLOPURINOL 300 MG TABLET PO (08:43)
[2024-08-19] MEDS: LISINOPRIL 10 MG TABLET PO (08:43)
[2024-08-19] MEDS: FAMOTIDINE 20 MG TABLET 40 MG PO (08:43)
[2024-08-19] MEDS: OXYBUTYNIN CHLORIDE 5 MG TAB XL 10 MG PO (08:43)
[2024-08-19] MEDS: CARVEDILOL 25 MG TABLET PO ×2 (08:43→21:23)
[2024-08-19] MEDS: BUPROPION HCL 150 MG XL TABLET 24H 300 MG PO (08:44)
[2024-08-19] MEDS: MAGNESIUM OXIDE 400 MG TABLET 800 MG PO ×2 (08:44→21:23)
[2024-08-19] MEDS: CEFTRIAXONE 1,000 MG in 0.9 % SODIUM CHLORIDE 50 ML 100 MG IV (09:46)
[2024-08-19] MEDS: NYSTATIN 15 GM POWDER 1 APPLIC TOPICAL ×2 (09:47→21:22)
[2024-08-19] MEDS: CLOTRIMAZOLE 1% 1 APPLIC TOPICAL ×2 (09:48→21:21)
[2024-08-19] MEDS: FLUTICASONE PROPIONATE 50 MCG NASAL SPRAY 1 SPRAY NS (09:49)
--- NOTE | 2024-08-19 09:50 | PM.IMPN1 ---
Progress Note: A&P Assessment and Plan (1) Altered mental status: Assessment and Plan: Resolved. back to baseline. Likely due to UTI and quinolone use. Switch IV rocephin to Cefuroxime. Qualifiers: Altered mental status type: delirium Qualified Code(s): R41.0 - Disorientation, unspecified (2) Weakness: Assessment and Plan: Improving but not at baseline. PT/OT eval. Recommended skilled rehab, awaiting precert. (3) Hypertension: Assessment and Plan: Stable BP. cw home medications. Qualifiers: Hypertension type: primary hypertension Qualified Code(s): I10 - Essential (primary) hypertension (4) Diabetes: Assessment and Plan: SSI while inpatient. Qualifiers: Diabetes mellitus type: type 2 Diabetes mellitus assisted insulin use: without termite treater helper use Diabetes mellitus complication status: with kidney complications Diabetes mellitus complication detail: with chronic kidney disease Chronic kidney disease stage: stage 3 (moderate) Chronic kidney disease stage 3 subtype: stage 3a (GFR 45-59) Qualified Code(s): E11.22 - Type 2 diabetes mellitus with diabetic chronic kidney disease; N18.31 - Chronic kidney disease, stage 3a (5) Chronic kidney disease: Assessment and Plan: Renal fx at baseline. Monitor. Qualifiers: Chronic kidney disease stage: stage 3 (moderate) Chronic kidney disease stage 3 subtype: stage 3a (GFR 45-59) Qualified Code(s): N18.31 - Chronic kidney disease, stage 3a Internal Medicine - PN: Subj Subjective Interval history: Seen and examined. No events overnight. Discharge canceled because patient decided to go to rehab. Awaiting precert for skilled facility placement. Exam Constitutional Vital Signs, click to edit/add: Last Vital Signs Temp 97.6 F 08/19/24 06:00 Pulse 72 08/19/24 07:58 Resp 16 08/19/24 06:00 BP 162/82 H 08/19/24 08:43 Pulse Ox 95 08/19/24 06:00 O2 Del Method Room Air 08/19/24 06:00 Documenting provider has reviewed patient's vital signs: yes Common normals: no apparent distress and oriented x3 General appearance: cooperative Nutritional appearance: obese Respiratory Common normals: normal respiratory effort and clear to auscultation bilaterally Effort & inspection: able to speak in complete sentences Auscultation: clear to auscultation bilaterally Cardio Common normals: regular rate, S1 normal heart sound and S2 normal heart sound Rate: regular rate Heart sounds: S1 normal and S2 normal Extremity Common normals: no clubbing, cyanosis or edema Neuro Common normals: oriented x3, moves all extremities and no focal motor deficits Psych Common normals: denies homicidal ideation and denies suicidal ideation Attitude: calm Speech: normal speech Insight: fair Judgement: fair Internal Medicine - PN: Obj Da Labs Labs: Laboratory Results - last 24 hr 08/18/24 08/18/24 08/18/24 11:10 16:22 22:03 WBC RBC Hgb Hct MCV MCH MCHC RDW Plt Count MPV Neut % (Auto) Lymph % (Auto) [place] % (Auto) Eos % (Auto) Baso % (Auto) Neut # (Auto) Lymph # (Auto) [place] # (Auto) Eos # (Auto) Baso # (Auto) Abs Immat Gran (auto) Imm/Tot Granulo (auto) Sodium Potassium Chloride Carbon Dioxide Anion Gap BUN Creatinine Est GFR ( Amer) Est GFR (Non-Af Amer) BUN/Creatinine Ratio Glucose Calcium Total Bilirubin AST ALT Alkaline Phosphatase Total Protein Albumin Globulin Albumin/Globulin Ratio POC Glucose 329 H 171 H 218 H 08/19/24 08/19/24 06:18 08:18 WBC 10.6 RBC 4.13 L Hgb 12.4 Hct 38.9 MCV 94.2 MCH 30.0 MCHC 31.9 RDW 14.9 Plt Count 221 MPV 9.8 Neut % (Auto) 58.1 Lymph % (Auto) 31.0 [place] % (Auto) 5.9 Eos % (Auto) 3.2 Baso % (Auto) 0.7 Neut # (Auto) 6.2 Lymph # (Auto) 3.3 [place] # (Auto) 0.6 Eos # (Auto) 0.3 Baso # (Auto) 0.1 Abs Immat Gran (auto) 0.12 H Imm/Tot Granulo (auto) 1.1 H Sodium 133 L Potassium 3.8 Chloride 101 Carbon Dioxide 23.4 Anion Gap 12.4 BUN 14.0 Creatinine 1.21 H Est GFR ( Amer) 52 L Est GFR (Non-Af Amer) 43 L BUN/Creatinine Ratio 11.6 Glucose 176 H Calcium 8.6 Total Bilirubin 0.4 AST 19 ALT 25 Alkaline Phosphatase 84 Total Protein 6.8 Albumin 2.7 L Globulin 4.1 Albumin/Globulin Ratio 0.7 POC Glucose 186 H Urinary Catheter Management Urinary Catheter Management Pure Wick: Cath placed during this visit: yes Urethral indwelling: No Insertion date: 08/17/24 Insertion time: 06:38
--- NOTE | 2024-08-19 10:01 | CM.NOTE ---
Rounds made with Dr. Esquivel. Continue current treatment plan.
--- NOTE | 2024-08-19 10:08 | REH.PTDLY ---
Physical Therapy Daily Note PT Daily Note/Assess Start: 08/19/24 10:01 Freq: Status: Active Protocol: Document 08/19/24 10:01 CHRIS (Rec: 08/19/24 10:07 CHRIS [id number]) Physical Therapy Daily Note/Assessment Time In 09:10 Time Out 09:29 Subjective Pt in bed upon arrival. Agreeable to therapy. Didn't sleep the greatest last night. Up and down to the chair. Therapeutic Exercise Minutes (minutes) 7 Therapeutic Exercise Units 0 Therapeutic Exercise Treatment Instructed in B LE seated AP, LAQ, hip IR/ER, and hip add squeeze 15x ea for improved strength of LEs and core by sitting bedside unsupported with postural cues Therapeutic Activity Minutes (minutes) 10 Therapeutic Activity Units 1 Therapeutic Activity Comments Supine to sit transfers Min A. Sit to stand transfer with bed slightly elevated CGA. Pt stood statically for 2 mins while brief and bed pads changed, pt unware when she needs to use restroom all the time pt states. Gait training with RW CGA 65 feet x2 with standing rest break. Pt fatigued post gait, needing seated rest break. Pt performs sit to stand transfers 2 more times. Total Therapy Minutes 17 Total Physical Therapy Units 1 Daily Note Summary Progressed gait distance, but pt is easily fatigued. Needs a standing rest break during gait. Pt could benefit from SNF stay as to regain strength for ease of gait and transfers.
--- NOTE | 2024-08-19 10:19 | SWNOTE1 ---
SW sent PT/OT note from today, physician note, vitals, and labs from today to [facility] for precert.
--- NOTE | 2024-08-19 10:32 | SWNOTE1 ---
SW completed HENS online.
[2024-08-19 11:04] LABS: Glucometer 228 mg/dL (74-106)
--- NOTE | 2024-08-19 14:40 | SWNOTE1 ---
SW reached out to [facility] at [facility], precert is still pending.
[2024-08-19 16:10] LABS: Glucometer 188 mg/dL (74-106)
[2024-08-19 21:22] LABS: Glucometer 222 mg/dL (74-106)
[2024-08-19] MEDS: CEFUROXIME AXETIL 250 MG TABLET 500 MG PO (21:23)
[2024-08-20] VITALS (11 sets, daily range): BP systolic 124–154; BP diastolic 70–82; PULSE 65–81; TEMP 36.5–36.6; O2SAT 94–96
[2024-08-20] MEDS: HEPARIN SODIUM (PORCINE) 5,000 UNIT/ML VIAL 7500 UNIT SUBQ ×3 (05:45→21:54)
[2024-08-20 07:28] LABS: Glucometer 166 mg/dL (74-106)
[2024-08-20] MEDS: INSULIN ASPART 300 UNIT/3 ML PEN SUBQ ×4 (07:32→21:55)
[2024-08-20] MEDS: CEFUROXIME AXETIL 250 MG TABLET 500 MG PO ×2 (08:15→21:54)
[2024-08-20] MEDS: OXYBUTYNIN CHLORIDE 5 MG TAB XL 10 MG PO (08:15)
[2024-08-20] MEDS: FAMOTIDINE 20 MG TABLET 40 MG PO (08:15)
[2024-08-20] MEDS: ALLOPURINOL 300 MG TABLET PO (08:16)
[2024-08-20] MEDS: LISINOPRIL 10 MG TABLET PO (08:16)
[2024-08-20] MEDS: BUPROPION HCL 150 MG XL TABLET 24H 300 MG PO (08:16)
[2024-08-20] MEDS: FLUTICASONE PROPIONATE 50 MCG NASAL SPRAY 1 SPRAY NS (08:16)
[2024-08-20] MEDS: MAGNESIUM OXIDE 400 MG TABLET 800 MG PO ×2 (08:16→21:54)
[2024-08-20] MEDS: CARVEDILOL 25 MG TABLET PO ×2 (08:16→21:54)
[2024-08-20] MEDS: NYSTATIN 15 GM POWDER 1 APPLIC TOPICAL ×2 (08:17→21:53)
[2024-08-20] MEDS: FERROUS SULFATE 325 MG TABLET PO ×2 (08:20→21:54)
[2024-08-20] MEDS: ASCORBIC ACID 500 MG TABLET 250 MG PO ×2 (08:20→21:54)
--- NOTE | 2024-08-20 09:59 | CM.NOTE ---
Rounds made with Dr. Esquivel. No changes in plan of care.
--- NOTE | 2024-08-20 10:40 | SWNOTE1 ---
SW sent OT note to [facility] at [facility] for precert. Precert is still pending per [facility].
--- NOTE | 2024-08-20 10:55 | SWNOTE1 ---
SW sent PT note from today to [facility] at [facility] for precert.
--- NOTE | 2024-08-20 11:06 | REH.PTDLY ---
Physical Therapy Daily Note PT Daily Note/Assess Start: 08/19/24 10:01 Freq: Status: Active Protocol: Document 08/20/24 10:44 CHRIS (Rec: 08/20/24 10:48 CHRIS [id number]) Physical Therapy Daily Note/Assessment Time In 10:10 Time Out 10:24 Subjective Pt up with OT in restroom upon arrival. Once finished HORSESHOER took over care Therapeutic Exercise Minutes (minutes) 5 Therapeutic Exercise Units 0 Therapeutic Exercise Treatment Instructed in B LE seated exs in chair for improved strength for ease of gait and transfers. Pt performed LAQ, marching, hip add squeeze and hip IR/ER 10x ea. Therapeutic Activity Minutes (minutes) 8 Therapeutic Activity Units 1 Therapeutic Activity Comments Gait training with RW CGA for safety. Pt ambulated 65 feet with pt having an increase in forward flexed posture and lateral trunk lean to the R as she fatigues. Cues for pt to reach back for chair prior to sitting and not to terry as she is fatigued. Total Therapy Minutes 13 Total Physical Therapy Units 1 Daily Note Summary Pt fatigues with gait training today and posture/body mechanics show this. Pt requires CGA for safety. Pt will benefit from rehab stay for improved strength and mobility to care for herself.
[2024-08-20 11:38] LABS: Glucometer 257 mg/dL (74-106)
--- NOTE | 2024-08-20 13:07 | SWNOTE1 ---
SW called and left message for daughter, Maria T, updating her that we are waiting for precer to go through. SW also let daughter know in message that we may not be able to get transportation if the precert goes through later today and someone in family would have to transport over.
--- NOTE | 2024-08-20 13:53 | SWNOTE1 ---
SW spoke with pt as well in regards to precert and it still pending. SW expressed that there is a chance that it may not come back until later today and if that is the case SW may not be able to set up transport. SW asked if her daughter could transport and she stated that her daughter gets off work at 6:00 and she is not sure what she has planned. SW then stated the options would then be either family transport or pt would have to pay out of pocket for ambulance transportation. Pt voiced understanding.
--- NOTE | 2024-08-20 14:01 | SWNOTE1 ---
Pt does not have her [facility] card to call her insurance. Precert still pending. [facility]lette at [facility] did let SW know that there central intake does there precerts and they are available 16/04, so if for some reason she does not get approved today, someone will be checking tomorrow.
--- NOTE | 2024-08-20 14:18 | SWNOTE1 ---
DENILSON took packet out to the floor and updated the nurse and doctor that [facility] will call if pt is approved, If this happens DENILSON can call daughter to transport or try trips. DENILSON advised that someone will be checking precert tomorrow as well in case no approval happens today.
[2024-08-20 15:48] LABS: Glucometer 231 mg/dL (74-106)
--- NOTE | 2024-08-20 17:26 | P.IMPN_ITS ---
Progress Note: A&P Assessment and Plan (1) Altered mental status: Assessment and Plan: Resolved. back to baseline. Likely due to UTI and quinolone use. On oral Cefuroxime. Qualifiers: Altered mental status type: delirium Qualified Code(s): R41.0 - Disorientation, unspecified (2) Weakness: Assessment and Plan: PT/OT while inpatient. Awaiting precert for SNF placement. (3) Hypertension: Assessment and Plan: Stable BP. cw home medications. Qualifiers: Hypertension type: primary hypertension Qualified Code(s): I10 - Essential (primary) hypertension (4) Diabetes: Assessment and Plan: SSI while inpatient. Qualifiers: Diabetes mellitus type: type 2 Diabetes mellitus residential insulin use: without residential use Diabetes mellitus complication status: with kidney complications Diabetes mellitus complication detail: with chronic kidney disease Chronic kidney disease stage: stage 3 (moderate) Chronic kidney disease stage 3 subtype: stage 3a (GFR 45-59) Qualified Code(s): E11.22 - Type 2 diabetes mellitus with diabetic chronic kidney disease; N18.31 - Chronic kidney disease, stage 3a (5) Chronic kidney disease: Assessment and Plan: Renal fx at baseline. Monitor. Qualifiers: Chronic kidney disease stage: stage 3 (moderate) Chronic kidney disease stage 3 subtype: stage 3a (GFR 45-59) Qualified Code(s): N18.31 - Chronic kidney disease, stage 3a Internal Medicine - PN: Subj Subjective Interval history: Seen and examined. No events overnight. Awaiting precert for skilled facility placement. Exam Constitutional Vital Signs, click to edit/add: Last Vital Signs Temp 98 F 08/20/24 13:22 Pulse 67 08/20/24 13:22 Resp 20 08/20/24 13:22 BP 145/73 H 08/20/24 13:22 Pulse Ox 96 08/20/24 13:22 O2 Del Method Room Air 08/20/24 13:22 Documenting provider has reviewed patient's vital signs: yes Common normals: no apparent distress and oriented x3 General appearance: cooperative Nutritional appearance: obese Respiratory Common normals: normal respiratory effort and clear to auscultation bilaterally Effort & inspection: able to speak in complete sentences Auscultation: clear to auscultation bilaterally Cardio Common normals: regular rate, S1 normal heart sound and S2 normal heart sound Rate: regular rate Heart sounds: S1 normal and S2 normal Extremity Common normals: no clubbing, cyanosis or edema Neuro Common normals: oriented x3, moves all extremities and no focal motor deficits Psych Common normals: denies homicidal ideation and denies suicidal ideation Attitude: calm Speech: normal speech Insight: fair Judgement: fair Internal Medicine - PN: Obj Da Labs Labs: Laboratory Results - last 24 hr 08/19/24 08/20/24 08/20/24 21:20 07:25 11:36 POC Glucose 222 H 166 H 257 H 08/20/24 15:46 POC Glucose 231 H Urinary Catheter Management Urinary Catheter Management Pure Wick: Cath placed during this visit: yes Urethral indwelling: No Insertion date: 08/17/24 Insertion time: 06:38
[2024-08-20] MEDS: CLOTRIMAZOLE 1% 1 APPLIC TOPICAL (21:52)
[2024-08-20 21:53] LABS: Glucometer 191 mg/dL (74-106)
[2024-08-21] MEDS: HEPARIN SODIUM (PORCINE) 5,000 UNIT/ML VIAL 7500 UNIT SUBQ ×3 (05:14→21:43)
[2024-08-21 05:21] VITALS: BP 141/83; PULSE 76; TEMP 36.5; O2SAT 94
[2024-08-21 07:17] LABS: Glucometer 199 mg/dL (74-106)
[2024-08-21] MEDS: BUPROPION HCL 150 MG XL TABLET 24H 300 MG PO (08:11)
[2024-08-21] MEDS: OXYBUTYNIN CHLORIDE 5 MG TAB XL 10 MG PO (08:11)
[2024-08-21] MEDS: NYSTATIN 15 GM POWDER 1 APPLIC TOPICAL ×2 (08:11→21:43)
[2024-08-21] MEDS: FLUTICASONE PROPIONATE 50 MCG NASAL SPRAY 1 SPRAY NS (08:11)
[2024-08-21] MEDS: MAGNESIUM OXIDE 400 MG TABLET 800 MG PO ×2 (08:12→21:41)
[2024-08-21] MEDS: LISINOPRIL 10 MG TABLET PO (08:12)
[2024-08-21] MEDS: CARVEDILOL 25 MG TABLET PO ×2 (08:12→21:41)
[2024-08-21] MEDS: FAMOTIDINE 20 MG TABLET 40 MG PO (08:12)
[2024-08-21] MEDS: CEFUROXIME AXETIL 250 MG TABLET 500 MG PO ×2 (08:12→21:42)
[2024-08-21] MEDS: ALLOPURINOL 300 MG TABLET PO (08:12)
[2024-08-21] MEDS: INSULIN ASPART 300 UNIT/3 ML PEN SUBQ ×4 (08:13→21:46)
[2024-08-21 11:06] VITALS: O2SAT 96
[2024-08-21 11:16] LABS: Glucometer 253 mg/dL (74-106)
--- NOTE | 2024-08-21 12:28 | PM.IMPN1 ---
Progress Note: A&P Assessment and Plan (1) Altered mental status: Assessment and Plan: Resolved. Likely due to UTI and quinolone use. On oral Cefuroxime. Qualifiers: Altered mental status type: delirium Qualified Code(s): R41.0 - Disorientation, unspecified (2) Weakness: Assessment and Plan: PT/OT while inpatient. Awaiting precert for SNF placement. (3) Hypertension: Assessment and Plan: Stable BP. cw home medications. Qualifiers: Hypertension type: primary hypertension Qualified Code(s): I10 - Essential (primary) hypertension (4) Diabetes: Assessment and Plan: SSI while inpatient. Qualifiers: Diabetes mellitus type: type 2 Diabetes mellitus mcc insulin use: without long term care phlebotomist use Diabetes mellitus complication status: with kidney complications Diabetes mellitus complication detail: with chronic kidney disease Chronic kidney disease stage: stage 3 (moderate) Chronic kidney disease stage 3 subtype: stage 3a (GFR 45-59) Qualified Code(s): E11.22 - Type 2 diabetes mellitus with diabetic chronic kidney disease; N18.31 - Chronic kidney disease, stage 3a (5) Chronic kidney disease: Assessment and Plan: Renal fx at baseline. Monitor. Qualifiers: Chronic kidney disease stage: stage 3 (moderate) Chronic kidney disease stage 3 subtype: stage 3a (GFR 45-59) Qualified Code(s): N18.31 - Chronic kidney disease, stage 3a Internal Medicine - PN: Subj Subjective Interval history: Seen and examined. No events overnight. No active complaints. Exam Constitutional Vital Signs, click to edit/add: Last Vital Signs Temp 97.7 F 08/21/24 05:21 Pulse 76 08/21/24 05:21 Resp 20 08/21/24 05:21 BP 141/83 08/21/24 05:21 Pulse Ox 96 08/21/24 11:06 O2 Del Method Room Air 08/21/24 11:06 Documenting provider has reviewed patient's vital signs: yes Common normals: no apparent distress and oriented x3 General appearance: cooperative Nutritional appearance: obese Respiratory Common normals: normal respiratory effort and clear to auscultation bilaterally Effort & inspection: able to speak in complete sentences Auscultation: clear to auscultation bilaterally Cardio Common normals: regular rate, S1 normal heart sound and S2 normal heart sound Rate: regular rate Heart sounds: S1 normal and S2 normal Neuro Common normals: oriented x3, moves all extremities and no focal motor deficits Psych Common normals: denies homicidal ideation and denies suicidal ideation Attitude: calm Speech: normal speech Insight: fair Judgement: fair Internal Medicine - PN: Obj Da Labs Labs: Laboratory Results - last 24 hr 08/20/24 08/20/24 08/21/24 15:46 21:52 07:15 POC Glucose 231 H 191 H 199 H 08/21/24 11:16 POC Glucose 253 H Urinary Catheter Management Urinary Catheter Management Pure Wick: Cath placed during this visit: yes Urethral indwelling: No Insertion date: 08/20/24 Insertion time: 20:39
[2024-08-21 13:38] VITALS: BP 112/55; PULSE 69; TEMP 36.3; O2SAT 97
[2024-08-21 16:14] LABS: Glucometer 231 mg/dL (74-106)
[2024-08-21 19:56] VITALS: BP 138/77; PULSE 72; TEMP 36.6; O2SAT 96
[2024-08-21 20:06] VITALS: O2SAT 97
[2024-08-21 21:42] LABS: Glucometer 244 mg/dL (74-106)
[2024-08-21] MEDS: CLOTRIMAZOLE 1% 1 APPLIC TOPICAL (21:42)
[2024-08-22 04:25] VITALS: BP 119/72; PULSE 76; TEMP 36.7; O2SAT 96
[2024-08-22] MEDS: HEPARIN SODIUM (PORCINE) 5,000 UNIT/ML VIAL 7500 UNIT SUBQ ×2 (05:12→14:04)
[2024-08-22 07:32] LABS: Glucometer 182 mg/dL (74-106)
--- NOTE | 2024-08-22 08:45 | SWNOTE1 ---
DENILSON has an email and message out to Colette at [facility] to check on precert. DENILSON also left a message for the daughter to let her know there is a chance patient may be discharged home with home health today if the insurance does not approve. There is also a chance the insurance may deny her for SNF stay as well.
[2024-08-22] MEDS: LISINOPRIL 10 MG TABLET PO (08:56)
[2024-08-22] MEDS: CARVEDILOL 25 MG TABLET PO (08:56)
[2024-08-22] MEDS: CEFUROXIME AXETIL 250 MG TABLET 500 MG PO (08:56)
[2024-08-22] MEDS: FAMOTIDINE 20 MG TABLET 40 MG PO (08:56)
[2024-08-22] MEDS: MAGNESIUM OXIDE 400 MG TABLET 800 MG PO (08:56)
[2024-08-22] MEDS: FERROUS SULFATE 325 MG TABLET PO (08:56)
[2024-08-22] MEDS: BUPROPION HCL 150 MG XL TABLET 24H 300 MG PO (08:56)
[2024-08-22] MEDS: ALLOPURINOL 300 MG TABLET PO (08:56)
[2024-08-22] MEDS: OXYBUTYNIN CHLORIDE 5 MG TAB XL 10 MG PO (08:56)
[2024-08-22] MEDS: FLUTICASONE PROPIONATE 50 MCG NASAL SPRAY 1 SPRAY NS (08:57)
[2024-08-22] MEDS: ASCORBIC ACID 500 MG TABLET 250 MG PO (08:57)
[2024-08-22] MEDS: INSULIN ASPART 300 UNIT/3 ML PEN SUBQ ×2 (08:57→12:33)
[2024-08-22] MEDS: CLOTRIMAZOLE 1% 1 APPLIC TOPICAL (08:58)
[2024-08-22] MEDS: NYSTATIN 15 GM POWDER 1 APPLIC TOPICAL (08:59)
--- NOTE | 2024-08-22 09:12 | PT.DAILY ---
Physical Therapy Daily Note PT Daily Note/Assess Start: 08/19/24 10:01 Freq: Status: Active Protocol: Document 08/22/24 09:09 KANDYCHRISISI (Rec: 08/22/24 09:11 RADHA [id number]) Physical Therapy Daily Note/Assessment Time In/Time Out Time In 08:50 Time Out 09:05 Pain In Pain N/A Pain Out Pain N/A Subjective Subjective Pt sitting in BS chair upon arrival. Agrees to PT. Therapeutic Exercise Time Therapeutic Exercise Minutes (minutes) 3 Therapeutic Exercise Units 0 Therapeutic Exercise Treatment Therapeutic Exercise Treatment Seated bilat LE strengthening ex complete in BS chair 10x ea to improve/maintain strength. Therapeutic Activity Time Therapeutic Activity Minutes (minutes) 10 Therapeutic Activity Units 1 Therapeutic Activity Treatment Chair Transfer Ability Contact Guard Assist Therapeutic Activity Comments Sit>stand CGA. Pt amb 80' with RW, SBA with increased time to complete. Pt demonstrates slow aroldo and short step length - though steady with RW . Pt also demonstrates forward flexed posture - unable to correct with vc. Returned to BS chair with call light in reach and chair alarm activated. Total Physical Therapy Time Total Therapy Minutes 13 Total Physical Therapy Units 1 Summary Daily Note Summary Improved gait endurance but does require increased time to perform task.
--- NOTE | 2024-08-22 09:14 | SWNOTE1 ---
SW sent updated PT/OT notes from today and progress note from yesterday to Colette at [facility].
--- NOTE | 2024-08-22 10:31 | PM.DS1 ---
DS: Providers Provider Date of admission: 08/16/24 19:41 Primary care physician: VICKIE DOYLE Admitting clinician: Shaikh Alvin Attending physician on admission: Shaikh Alvin Consults: 08/17/24 08:43 Physical Therapy Eval and Treat Routine Reason for consultation: Generalized weakness 08/18/24 Occupational Therapy Eval and Treat Routine Reason for consultation: therapy Attending physician on discharge: Shaikh Alvin Discharging clinician: Shaikh Alvin Anticipated date of discharge: 08/22/24 DS: Diagnosis Discharge Diagnosis (1) Altered mental status: Qualifiers: Altered mental status type: delirium Qualified Code(s): R41.0 - Disorientation, unspecified (2) Weakness: (3) Hypertension: Qualifiers: Hypertension type: primary hypertension Qualified Code(s): I10 - Essential (primary) hypertension (4) Diabetes: Qualifiers: Chronic kidney disease stage: stage 3 (moderate) Chronic kidney disease stage 3 subtype: stage 3a (GFR 45-59) Diabetes mellitus complication detail: with chronic kidney disease Diabetes mellitus complication status: with kidney complications Diabetes mellitus middle or intermediate [employer] principal insulin use: without long-term use Diabetes mellitus type: type 2 Qualified Code(s): E11.22 - Type 2 diabetes mellitus with diabetic chronic kidney disease; N18.31 - Chronic kidney disease, stage 3a (5) Chronic kidney disease: Qualifiers: Chronic kidney disease stage: stage 3 (moderate) Chronic kidney disease stage 3 subtype: stage 3a (GFR 45-59) Qualified Code(s): N18.31 - Chronic kidney disease, stage 3a DS: Summary Hospital Course Hospital Course: 74 y o female presented to ED from home for one week hx of generalized weakness and intermittent confusion with hallucinations. Patient lives at home by herself and had a fall on Sunday for which she was evaluated at [facility]. She was discharged from ED. On Sunday, her PCP started her on Ciprofloxacin for UTI. Patient denied nausea, vomiting, chest pain, SOB, abdominal pain, constipation, diarrhea. According to the patient and her daughter, since her ED visit, patient had felt increasingly weak. Her confusion was relatively new and she noticed visual hallucinations x 1-2 days. Work up in ED was unremarkable with no sig infectious, metabolic or hematological abnormality noted. She was empirically treated with IV rocephin for presumed UTI and gentle IV hydration overnight. She improved during the course of admission and was medically stable for discharge. However, upon eval by PT/OT, it was recommended that goes to SNF to improve her functional status. Patient's insurance took about 4 days to precert and she is finally approved today to go to SNF. Status at Discharge Functional status at discharge: uses cane/walker Overall status at discharge: patient is progressing back to baseline Time Spent with Patient Time attestation: Total time spent providing and/or coordinating discharge services: Time spent: greater than 30 minutes Exam Constitutional Vital Signs, click to edit/add: Last Vital Signs Temp 98.1 F 08/22/24 04:25 Pulse 76 08/22/24 04:25 Resp 18 08/22/24 04:25 BP 119/72 08/22/24 04:25 Pulse Ox 96 08/22/24 04:25 O2 Del Method Room Air 08/22/24 04:25 Documenting provider has reviewed patient's vital signs: yes Common normals: no apparent distress and oriented x3 General appearance: cooperative Nutritional appearance: obese Respiratory Common normals: normal respiratory effort and clear to auscultation bilaterally Effort & inspection: able to speak in complete sentences Auscultation: clear to auscultation bilaterally Cardio Common normals: regular rate, S1 normal heart sound and S2 normal heart sound Rate: regular rate Heart sounds: S1 normal and S2 normal Neuro Common normals: oriented x3, moves all extremities and no focal motor deficits Psych Common normals: denies homicidal ideation and denies suicidal ideation Attitude: calm Speech: normal speech Insight: fair Judgement: fair DS: Data Data Completed and Pending Labs on day of discharge: Labs from last 24 hours 08/22/24 08/21/24 08/21/24 07:28 21:41 16:13 POC Glucose 182 H 244 H 231 H 08/21/24 11:16 POC Glucose 253 H Preliminary micro results at discharge 08/16/24 17:51 Blood Culture Result 2 - Preliminary Blood NO GROWTH AT 36-48 HOURS. FINAL TO FOLLOW. 08/16/24 17:50 Blood Culture Result 1 - Preliminary Blood NO GROWTH AT 36-48 HOURS. FINAL TO FOLLOW. Discharge Plan Discharge Disposition: [facility] SNF Condition: Good Discharge Medications: Continued carvedilol 25 mg tablet 25 mg PO BID oxybutynin chloride 10 mg tablet extended release 24hr 10 mg PO DAILY glipizide 10 mg tablet extended release 24hr 10 mg PO DAILY famotidine 40 mg tablet 40 mg PO DAILY magnesium oxide 400 mg (241.3 mg magnesium) tablet 800 mg PO BID ferrous sulfate 325 mg (65 mg iron) tablet 325 mg PO Rx Instructions: TWICE A DAY ON SUNDAY, SUN AND SUNDAY lisinopril 10 mg tablet 10 mg PO DAILY allopurinol 300 mg tablet 300 mg PO DAILY clotrimazole 1 % cream 1 applic TOPICAL BID bupropion HCl 300 mg tablet extended release 24 hr 300 mg PO DAILY ascorbic acid (vitamin C) 250 mg tablet,chewable 250 mg PO Rx Instructions: TWICE A DAY ON SUN, SUN, SUN nystatin [Klayesta] 100,000 unit/gram powder 1 applic TOPICAL BID triamcinolone acetonide 0.1 % lotion 1 applic TOPICAL .SUN-SUN Rx Instructions: APPLY TO SCALP AND FACE SUNDAY-SUNDAY FOR 2 WEEKS THEN NEEDED FOR FLARES colchicine 0.6 mg tablet 0.6 mg PO BID fluticasone propionate 50 mcg/actuation spray,suspension 1 spray INTRANASAL DAILY Mounjaro 12.5 mg/0.5 mL pen injector 12.5 mg SUBCUT QWEEK Discontinued ciprofloxacin HCl 500 mg tablet 500 mg PO BID Rx Instructions: 08/15/24-08/21/24 Print Language: Icelandic Forms: Portal Instructions Follow Up Appointments: Aug.25 @ 1:20pm with Dr. Milian (Vickie Doyle, [employer] - retired) [phone]
[2024-08-22 11:06] VITALS: O2SAT 97
--- NOTE | 2024-08-22 11:33 | CM.NOTE ---
Rounds made with Dr. Esquivel. Dr Esquivel discussed plan for discharge today to SNF. Anna verbalized understanding.
--- NOTE | 2024-08-22 12:12 | SWNOTE1 ---
DENILSON now received a message from Colette at [facility] and the insurance is going to deny with the option of peer to peer. DENILSON spoke to Dr. Esquivel and at this time pt is medically stable for discharge and can return home with home health. DENILSON went to pt's room and spoke to pt and then called daughter, Maria T as well. Daughter did have concerns of her going home alone and asked for more resources. DENILSON did advise daughter that SW will set up HH, but it is not 16/04. SW did let her know that SW can give her a private caregiver list as well. Daughter would like SW to leave list in room. DENILSON did explain that pt did go 80 feet with therapy in the halls. At this time SW setting up HH. Pt's daughter will be here at some point today to take pt home, she is unsure of time, but stated she will let pt know. DENILSON updated nurse. Referral sent to [facility]. Referral included face sheet, ED note, H&P, provider notes, case management report, and PT/OT notes. Pt was alright with [facility] as that is initially where we sent it when she first came in.
[2024-08-22 12:19] LABS: Glucometer 255 mg/dL (74-106)
--- NOTE | 2024-08-22 13:36 | SWNOTE1 ---
SW received a call from [facility] and they received referral and running insurance. They will let SW know if any issues, but stated they think should be able to accommodate. DENILSON sent over CRF, dc med rec, and dc summary to [facility].
[2024-08-22 14:00] VITALS: BP 119/74; PULSE 72; TEMP 36.4; O2SAT 96
--- NOTE | 2024-08-25 15:40 | CM.NOTE ---
Pt left message that [facility] had not reached out, called [facility] and they will be contacting pt. Called Anna back with update and also provided her with [facility] phone number.
== END 2024-08-22 15:55 | disposition home health service (06) ==
LOC: ER 18:47 → MS 19:45
PROVIDERS: Physician Assistant; Registered Nurse; Admitting Provider Internal Medicine; Emergency Provider Emergency Medicine; PCP Nurse Practitioner Family; Visit Provider Internal Medicine
DX: R41.0 Disorientation, unspecified (principal); R53.1 Weakness; I10 Essential (primary) hypertension; E11.22 Type 2 diabetes mellitus with diabetic chronic kidney disease; N18.31 Chronic kidney disease, stage 3a; E78.5 Hyperlipidemia, unspecified; Z79.899 Other long term (current) drug therapy; Z87.891 Personal history of nicotine dependence; Z91.81 History of falling; Z87.440 Personal history of urinary (tract) infections; Z20.822 Contact with and (suspected) exposure to COVID-19
CPT/HCPCS: 36415; 70450; 71045; 80053; 81003; 82800; 82948; 83605; 83735; 83880; 84443; 84484; 85025; 85610; 87040; 87420; 87804; 87811; 93005; 94761; 96361; 96365; 96366; 96372; 97161; 97165; 97530; 97535; 99285; G0378; J0696; J1644; J1650

== ENCOUNTER 2024-09-09 12:32 | Outpatient (REF) | payer MEDICARE, SELFPAY ==
[2024-09-09 13:21] LABS: Bilirubin Urine NEGATIVE (NEGATIVE); Blood Urine NEGATIVE (NEGATIVE); Clarity Urine CLEAR (CLEAR); Color Urine LT. YELLOW (YELLOW); Glucose Urine UA NEGATIVE (NEGATIVE); Ketones Urine NEGATIVE (NEGATIVE); Leukocyte Esterase Urine NEGATIVE (NEGATIVE); Nitrite Urine POSITIVE (NEGATIVE); Protein Urine NEGATIVE (NEG/TRACE); Urobilinogen Urine 0.2 EU/dL (0.2-1.0); pH Urine 5.5 (5.0-9.0)
== END 2024-09-09 12:33 | disposition home or self-care (01) ==
LOC: LAB 12:32
PROVIDERS: PCP Nurse Practitioner Family; Visit Provider Family Medicine
DX: R30.0 Dysuria (principal)
CPT/HCPCS: 81003; 87086; 87150; 87186